=== PATIENT | male | born 1960 ===

== ENCOUNTER 2018-04-26 06:09 | Day surgery (SDC) | payer OTHER ==
[2018-04-25 12:57] VITALS: BMI 33.6
[2018-04-26] MEDS ORDERED: Lactated Ringer's 1,000 ML IV ONE ×2 (07:10→13:05)
--- NOTE | 2018-04-26 07:44 | CP.SDSHP ---
Same Day Surgery H & P - History Proposed Procedure: excision of posterior neck lipoma Pre-Op Diagnosis: posterior neck lipoma - Previous Medical/Surgical History Previous Surgical History: denies - Allergies Allergies: Allergies No Known Allergies Allergy (Verified 04/25/18 12:08) - Physical Exam General Appearance: well, nourished, NAD, AAOx3 Vital Signs: Vital Signs 04/26/18 06:53 Temperature 98.3 F Pulse Rate 60 Respiratory 18 Rate Blood Pressure 124/93 H O2 Sat by Pulse 98 Oximetry Mental Status: Alert & Oriented x3 Neuro: WNL Heart: WNL Lungs: WNL GI: WNL Social History: Smoking, Alcohol - {Optional Preform as Required} Other Pertinent Findings: posterior neck lipoma - Impression Impression: 57 M who presents for excision of posterior neck lipoma Pt. Evaluated Today:Candidate for Anesthesia & Procedure: Yes - Date & Time Date: 04/26/18 Time: 07:58 Short Stay Discharge - Short Stay Discharge Admitting Diagnosis/Reason for Visit: R22.1 Disposition: HOME/ ROUTINE Referrals: FAMILY PROVIDER,NO [Primary Care Provider] - Follow-up: follow up with Dr. Liu in office on 05/06/18 Additional Instructions (Diet, Activity): Take percocet as prescribed for pain Keep area clean and dry Follow up with Dr. Liu on 05/06/[address] Liu's office for any issues Progress Note/Discharge Note with Instructions: 57M s/p excision of posterior neck lipoma patient tolerated procedure well with no apparent complications patient clear for discharge to home
[2018-04-26] MEDS ORDERED: Bupivacaine 0.5% Inj(30mL) ONE (09:54)
[2018-04-26] MEDS ORDERED: Succinylcholine Chloride 20 mg/ml Syr (5 ml) IV ONE (10:01)
[2018-04-26] MEDS ORDERED: Propofol 10 mg/ml Inj (20 ML) ONE (10:01)
[2018-04-26] MEDS ORDERED: Midazolam 2 MG/2 ML VIAL ONE (10:02)
[2018-04-26] MEDS ORDERED: Lidocaine 2% Inj (20ml) IJ ONE (10:24)
[2018-04-26] MEDS ORDERED: HYDROmorphone 0.5 mg/0.5 ml ISec IVP PRN (11:08)
[2018-04-26] MEDS ORDERED: Oxycodone/Acetaminophen 5/325 mg Tab PO PRN (11:11)
[2018-04-26] MEDS ORDERED: Lactated Ringer's 1,000 ML IV SCH (11:15)
--- NOTE | 2018-04-26 11:16 | PCM.SURG1 ---
Surgeon's Initial Post Op Note - Surgeon's Notes Surgeon: Dr. Liu Direct Mail Coordinator: Carlee PGY2 Type of Anesthesia: General Endo Anesthesia Administered By: Dr. Arzola Pre-Operative Diagnosis: Posterior Neck lipoma Operative Findings: Posterior Neck lipoma Post-Operative Diagnosis: Posterior Neck lipoma Operation Performed: Excision of Posterior Neck lipoma Specimen/Specimens Removed: Posterior Neck lipoma Estimated Blood Loss: EBL {In ML}: 5 Blood Products Given: N/A Drains Used: No Drains Post-Op Condition: Good Date of Surgery/Procedure: 04/26/18 Time of Surgery/Procedure: 11:16
[2018-04-26 15:51] VITALS: O2SAT 96
[2018-04-26 16:07] VITALS: BP 148/96; PULSE 62; RESP 18; TEMP 98
--- NOTE | 2018-04-26 23:05 | OP ---
PROCEDURE DATE: 04/26/2018 PREOPERATIVE DIAGNOSIS: Posterior neck mass. POSTOPERATIVE DIAGNOSIS: Posterior neck mass. PROCEDURE: Excision of posterior neck mass. SURGEON: Shabbir Liu MD ANESTHESIA: General, local. FINDINGS: The patient has a lipoma at the posterior neck area around 4 cm x 3 cm. ESTIMATED BLOOD LOSS: Less than 10 mL. COMPLICATIONS: None. SPECIMEN: Posterior neck mass. CONDITION: Stable. BRIEF DESCRIPTION: This is a 57-year-old male who was seen in the office complaining of a growing posterior neck mass. The patient was evaluated and surgical intervention was recommended. The patient was explained the risks and benefits of the procedure not limited to bleeding, infection, possible recurrence. The patient agreed and consent was obtained. DESCRIPTION OF PROCEDURE: On date of procedure, the patient was brought to the operating room. He was placed in supine position after being placed in general endotracheal anesthesia. Local anesthetic was placed. The patient was then prepped and draped in the usual sterile fashion. After an adequate time-out, lidocaine was used to anesthetize the area. Then we proceeded to make a transverse incision using a 15 blade. This incision was carried down to the subcutaneous tissue using a Bovie cautery. At this point, we circumferentially dissected the lipoma off of the muscle. We used a combination of blunt along with the Bovie cautery to circumferentially free the mass. Once the mass was freed and it was removed, we proceeded to check for adequate hemostasis. The wound was irrigated. We then proceeded to use a 3-0 Vicryl to reapproximate the skin edges. We then proceeded to use a 3-0 nylon to close the skin incision in simple interrupted fashion. A sterile dressing was then applied to the incisions. The patient was extubated in stable condition and brought to the recovery room. At the end of the procedure, there was an adequate count to instruments, lap pads, and needles. Shabbir Liu MD
== END 2018-04-26 15:10 | disposition home or self-care (01) ==
LOC: H.OPSURG 06:09
DX: R22.1 Localized swelling, mass and lump, neck (principal); D17.0 Benign lipomatous neoplasm of skin and subcutaneous tissue of head, face and neck
CPT/HCPCS: 21558; 88307; J0690; J2250; J2405; J2704; J3010; J7120